=== PATIENT | female | born 1955 | race Caucasian/White ===

== ENCOUNTER 2023-12-24 08:54 | Outpatient (CLI) | payer MEDICARE, SELFPAY ==
--- NOTE | ~2023-12-24 | XR_ITS ---
Clinical Indication: Wheezing PA and lateral views of the chest: Comparison: None Findings: The lungs are clear, without evidence of focal consolidation or pleural effusion. Cardiome diastinal silhouette is within normal limits. Bones and soft tissues are unremarkable. Impression: Clear lungs. Possible COPD. Reviewed, dictated and finalized at [facility]. CTOR OF CARDIAC CATH LAB Impression: Clear lungs. Possible COPD.
--- NOTE | 2023-12-24 09:24 | ECHO_ITS ---
Patient Info Name: Meme Rowley Age: 68 years : 1955 Gender: Female Ht: 62 in Wt: 135 lbs BSA: 1.65 m2 HR: 78 bpm BP: 147 / 84 mmHg Technical Quality: Fair Exam Date: 12/24/2023 9:34 AM Exam Location: Echo Lab Patient Status: Outpatient Admit Date: 12/24/2023 Staff Ordering Physician: Criss Marrero PAC Pilot Fuel Engineer: Massiel Morales RDCS Attending Provider: Criss Marrero PAC Referring Physician: Janes CHANCE; Exam Type: CA echo doppler color flow Study Info Indications R01.1 - Cardiac murmur, unspecified Complete two-dimensional, color flow and Doppler transthoracic echocardiogram is performed. Summary 1. Complete two-dimensional, color flow and Doppler transthoracic echocardiogram is performed. 2. Left ventricular chamber dimension is normal. 3. Left ventricular systolic function is normal, estimated at 60-65%. 4. There is moderate concentric increased left ventricular wall thickness. 5. The left ventricular diastolic function is grade I diastolic dysfunction. 6. E/e' 11 is mildly elevated. 7. Global longitudinal strain is abnormal at -15.8%. 8. There is moderate aortic valve sclerosis. 9. The mitral valve has moderately calcified annulus. 10. There is trace mitral valve regurgitation. 11. No pulmonary hypertension, estimated pulmonary arterial systolic pressure is 37 mmHg. 12. There is trace pulmonic regurgitation. Left Ventricle E/e' 11 is mildly elevated. Global longitudinal strain is abnormal at -15.8%. Left ventricular chamber dimension is normal. Left ventricular systolic function is normal, estimated at 60-65%. There is moderate concentric increased left ventricular wall thickness. The left ventricular diastolic function is grade I diastolic dysfunction. Right Ventricle Right ventricular chamber dimension is normal. Right ventricular systolic function is normal. Left Atria Left atrial chamber dimension is normal. Right Atria Right atrial chamber dimension is normal. Aortic Valve The aortic valve is trileaflet. There is moderate aortic valve sclerosis. There is no aortic valve stenosis. There is no aortic valve regurgitation. Pulmonic Valve There is trace pulmonic regurgitation. Mitral Valve The mitral valve has moderately calcified annulus. There is no mitral valve stenosis. There is trace mitral valve regurgitation. Tricuspid Valve There is no tricuspid valve regurgitation. No pulmonary hypertension, estimated pulmonary arterial systolic pressure is 37 mmHg. Pericardium/Pleural There is no pericardial effusion. Inferior Vena Cava Normal inferior vena cava with >50% collapse upon inspiration consistent with normal right atrial pressure, 5 mmHg. Aorta The aortic root size at the sinus of Valsalva is normal. Left Ventricular Outflow Tract Name Value Normal LVOT 2D LVOT Diameter 2.0 cm LVOT Doppler LVOT Peak Gradient 6 mmHg LVOT Mean Gradient 4 mmHg LVOT VTI 23 cm LVOT VTI/AV VTI Ratio 0.9 LVOT Stroke Volume 71 ml LVOT CO 16.4 l/min LVOT CI
== END 2023-12-24 08:55 | disposition home or self-care (01) ==
PROVIDERS: PCP Family Medicine; Visit Provider Physician Assistant Medical
DX: R01.1 Cardiac murmur, unspecified (principal); R93.1 Abnormal findings on diagnostic imaging of heart and coronary circulation; I34.81 Nonrheumatic mitral (valve) annulus calcification; I34.0 Nonrheumatic mitral (valve) insufficiency; I37.1 Nonrheumatic pulmonary valve insufficiency; Z72.0 Tobacco use
CPT/HCPCS: 71046; 93306

== ENCOUNTER 2025-02-27 08:35 | Emergency (ER) | payer MEDICARE, SELFPAY ==
--- OUTSIDE RECORDS SUMMARY | 2025-02-27 08:40 | XMS_ITS | Referral Summary ---
Author Organization [facility] Address [address] [place] [id number] Care Team Providers Care Paste Plant Supervisor Name Role Phone Christiano Stahl MD Primary Care Provider [phone] Encounters Date Type Department Care Team Description 02/11/2025 10:00 AM CDT Office Visit [facility] Orthopedics and Sports Medicine [address] [place] [address] [address] [place] [address] Abdirahman Sevilla MD Primary osteoarthritis of knees, bilateral (Primary Dx) from Last 3 Months Allergies No known active allergies Medications metFORMIN (GLUCOPHAGE) 1,000 mg tablet 1 tablet (1,000 mg total) 2 (two) times a day Active lisinopril (PRINIVIL,ZESTRIL) 10 mg tablet 1 tablet (10 mg total) daily Active canagliflozin (INVOKANA) 100 mg tablet 1 tablet (100 mg total) daily Active Jardiance 10 mg tablet TK 1 T PO D 0 Active Synjardy XR 25-1,000 mg tablet, IR & ER, biphasic 24hr 1 Active HYDROcodone-acetami nophen (NORCO) 5-325 mg per tablet 02/20/20 2 1 Active simvastatin (ZOCOR) 20 mg tablet Take 1 tablet (20 mg total) by mouth daily [address] (VOLTAREN) 75 mg EC tabletIndications:P rimary osteoarthritis of knees, bilateral Take 1 tablet (75 mg total) by mouth 2 (two) times a day 60 tablet 2 3 Active Farxiga 10 mg tablet Take 1 tablet (10 mg total) by mouth daily 5 Active Hospital, Clinic, or Other Facility Administered Medication Ordered Dose Route Frequency Start Date End Date Status lidocaine (XYLOCAINE) 10 mg/mL (1 %) injection 1 mLIndications:Admini stration of Local Anesthesia 1 mL One-Time Injection 02/11/2025 5 Ended lidocaine (XYLOCAINE) 10 mg/mL (1 %) injection 1 mLIndications:Admini stration of Local Anesthesia 1 mL One-Time Injection 02/11/2025 5 Ended triamcinolone (KENALOG) 40 mg/mL injection 40 mgIndications:Primar y osteoarthritis of knees, bilateral 40 mg intra-artic One-Time Injection 02/11/2025 5 Ended triamcinolone (KENALOG) 40 mg/mL injection 40 mgIndications:Primar y osteoarthritis of knees, bilateral 40 mg intra-artic One-Time Injection 02/11/2025 5 Ended Active Problems Problem Noted Date Diagnosed Date Primary osteoarthritis of right shoulder 021 Closed fracture of right proximal humerus 2020 Primary osteoarthritis of knees, bilateral 11/23 Social History Tobacco Use Types Packs/Day Years Used Date Smoking Tobacco: Every Day Smokeless Tobacco: Current Alcohol Use Standard Drinks/Week Comments Not Currently 0 (1 standard drink = 0.6 oz pur e alcohol) Comments Unknown Sex and Gender Information Value Date Recorded Sex Assigned at Not on file 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 Gender Identity Not on file Sexual Orientation Not on file Occupation Industry Job Start Date Job End Date retired Not on file Not on file Not on file Last Filed Vital Signs Vital Sign Reading Time Taken Comments Blood Pressure - - Pulse - - Temperature - - Respiratory Rate - - Oxygen Saturation - - Inhaled Oxygen Concentration - - Weight 59 kg (130 lb) 02/11/2025 9:39 AM CDT Height 157.5 cm (5' 2 ) 02/11/2025 9:39 AM CDT Body Mass Index 23.78 02/11/2025 9:39 AM CDT Plan of Treatment Not on file Procedures Procedure Name Priority Date/Time Associated Diagnosis Comments CA ARTHROCENTESIS ASPIR&/INJ MAJOR JT/BURSA W/O US Routine 02/11/2025 10:00 AM CDT Primary osteoarthritis of knees, bilateral from Last 3 Months Results * CA ARTHROCENTESIS ASPIR&/INJ MAJOR JT/BURSA W/O US (02/11/2025 10:00 AM CDT) Abdirahman Mercer MD - 02/11/2025 10:00 AM CDT Abdirahman Sevilla MD 02/12/2025 8:49 AM Large Joint (Hip, Knee, Shoulder) Injection: bilateral knee Performed by: Abdirahman Sevilla MD Authorized by: Abdirahman Sevilla MD Large Joint Injection/Aspiration: Consent Given by: Patient Site marked: the procedure site was marked Timeout: prior to procedure the correct patient, procedure, and site was verified Verbal consent obtained: Yes Written consent obtained: No Supporting Documentation: Indications: Pain Procedure Details: Location: Knee Site: Bilateral knee Prep: patient was prepped using a clean technique Needle Size: 22 G Ultrasound guided: No Fluroscopic guidance: No Medications Right Large Joint Injection: 1 mL lidocaine 10 mg/mL (1 %); 40 mg triamcinolone 40 mg/mL Medications Left Large Joint Injection: 1 mL lidocaine 10 mg/mL (1 %); 40 mg triamcinolone 40 mg/mL Patient tolerance: Patient tolerated the procedure well with no immediate complications Result [facility] Abdirahman Sevilla MD IN CLINIC/BEDSIDE [facility] Final Result from Last 3 Months Insurance [facility] MEDICARE [employer]AGE [facility] MEDICARE Address: [address] [phone] [employer] MEDIC[employer] PPO Care Teams Paste Plant Supervisor Relationship Specialty Start Date End Date Christiano Stahl MD PCP - General Family Medicine 02/11/19
--- OUTSIDE RECORDS SUMMARY | 2025-02-27 08:40 | XMS_ITS | Clinical Summary ---
Author Organization [facility] Address [address] [place] [address] Care Team Providers Care Associate Drafter Name Role Phone Christiano Stahl MD Primary Care Provider Allergies No known active allergies Medications metFORMIN [...] 2020 Primary osteoarthritis of knees, bilateral 11/23 Encounters Date Type Department Care Team Description 02/11/2025 10:00 AM CDT Office Visit [facility] Orthopedics and Sports Medicine [address] [place] [phone] Abdirahman Sevilla MD Primary osteoarthritis of knees, bilateral (Primary Dx) from Last 3 Months Surgical History Surgery Date Site/Laterality Comments WRIST FRACTURE SURGERY Medical History Medical History Date Comments Diabetes mellitus (HCC) Primary osteoarthritis of both knees Family History Medical History Relation Name Comments Diabetes Other Relation Name Status Comments Other Social History Tobacco Use Types Packs/Day Years Used Date Smoking Tobacco: Every Day Smokeless Tobacco: Current Alcohol Use Standard Drinks/Week Comments Not Currently 0 (1 standard drink = 0.6 oz pur e alcohol) Comments Unknown Sex and Gender Information Value Date Recorded Sex Assigned at Not on file 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 Gender Identity Not on file Sexual Orientation Not on file Occupation Industry Job Start Date Job End Date retired Not on file Not on file Not on file Obstetrics History Last Filed Vital Signs Vital Sign Reading Time Taken Comments Blood Pressure - - Pulse - - Temperature - - Respiratory Rate - - Oxygen Saturation - - Inhaled Oxygen Concentration - - Weight 59 kg (130 lb) 02/11/2025 9:39 AM CDT Height 157.5 cm (5' 2 ) 02/11/2025 9:39 AM CDT Body Mass Index 23.78 02/11/2025 9:39 AM CDT Plan of Treatment Health Maintenance Due Date Last Done Comments Breast Cancer Screening-Mammogram 1955 Colon Cancer Screening-Colonoscopy 1955 Depression Screening 1955 Fall Risk Assessment 1955 Hepatitis C Screening 1955 Osteoporosis Screening-Bone Density Scan 1955 Hepatitis B Screening 1972 Zoster Vaccine (1 of 2) 2004 Well Visit 65+ 2019 Pneumococcal vaccine 65+ (2 of 2 - PPSV23) 09/30/2019 08/05/2019 Influenza Vaccine (#1) 2024 DTaP/Tdap/Td Vaccine (2 - Td or Tdap) 08/05/2029 Procedures Procedure Name Priority Date/Time Associated Diagnosis Comments MA ARTHROCENTESIS ASPIR&/INJ MAJOR JT/BURSA W/O US Routine 02/11/2025 10:00 AM CDT Primary osteoarthritis of knees, bilateral from Last 3 Months Results * MA ARTHROCENTESIS ASPIR&/INJ MAJOR JT/BURSA W/O US (02/11/2025 10:00 AM CDT) Narrative Abdirahman Sevilla MD - 02/11/2025 10:00 AM CDT Abdirahman [...] the procedure well with no immediate complications us Abdirahman Sevilla MD IN CLINIC/BEDSIDE ABDULLAHI BLAKE Final Result from Last 3 Months Insurance [facility] MEDICARE ADVANTAGE [employer] MEDIC[employer] PPO Care Teams Associate Drafter Relationship Specialty Start Date End Date Christiano Stahl MD PCP - General Family Medicine 02/11/19
[2025-02-27 08:48] VITALS: BP 146/62; PULSE 78; RESP 18; TEMP 36.8; O2SAT 99
[2025-02-27 08:59] LABS: EDUAAPPEAR Clear; EDUABILI Negative (Negative); EDUABLOOD Trace (Negative); EDUACOLOR1 Yellow; EDUAGLUCOSE 2+ (Negative); EDUAKETONE Negative (Negative); EDUALEUKO 1+ (Negative); EDUANITRATE Negative (Negative); EDUAPH 5.5; EDUAPROTEIN Negative (Negative); EDUASPGRAVITY 1.005; EDUAUROBILI 0.2
--- NOTE | 2025-02-27 09:04 | ED_ITS ---
HPI - Female Genitourinary General Chief complaint: Urogenital-Female Stated complaint: uti symptoms Time Seen by Provider: 02/27/25 08:58 Source: patient and RN notes reviewed Mode of arrival: ambulatory Limitations: no limitations History of Present Illness HPI Narrative: Patient presents today complaining of a 4 day history of urinary frequency and incomplete bladder emptying. Denies any additional symptoms to include dysuria, hematuria, abdominal or back pain, fever. She has taking azo with little relief. Related Data Home Medications ?Medication ?Instructions ?Recorded ?Confirmed ?Last Taken ?Type aspirin 81 mg tablet,delayed 81 mg PO DAILY 01/13/24 12/03/24 Unknown History release Allergies Allergy/AdvReac Type Severity Reaction Status Date / Time No Known Allergies Allergy Verified 02/27/25 08:52 Review of Systems Review of Systems: CONSTITUTIONAL: Denies body aches, fever, chills, or sweats. EYES: Denies visual changes, redness, or discharge. ENT: Denies rhinorrhea, congestion, sore throat, or otalgia. CARDIOVASCULAR: Denies chest pain, palpitations, or edema. RESPIRATORY: Denies cough or dyspnea. GASTROINTESTINAL: Denies abdominal pain, nausea, vomiting, or diarrhea. GENITOURINARY: Denies dysuria or hematuria.+ frequency, incomplete emptying SKIN: Denies rash, itching, or wounds. MUSCULOSKELETAL: Denies back pain, joint pain, or myalgia. NEUROLOGIC: Denies headache, numbness, tingling, or weakness. PSYCH: Denies depression or anxiety. [facility] Past Medical History Medical History Aortic valve sclerosis BMI 25.0-25.9,adult BMI 30.0-30.9,adult Tobacco abuse Family History Family History Father Family history of heart disease in male family member before age 55 Mother , MVC Sibling , cancer Diabetes mellitus Sibling Dementia Social History Social History Smoking packs per day: 0.50 Smoking cigarettes per day: 10.0 Years smoked: 20 Smoking pack-years: 10.00 Smoking status: Current some day smoker (1/2 ppd) Tobacco type: cigarettes Second hand tobacco smoke exposure: No Alcohol intake: former Substance use: current Substance use type: marijuana Do You Feel Safe in your Home?: Yes Lack of Transportation: No Lack of Food: Never True Current Housing: I Have Housing Concerned About Future Housing: No Difficulty Paying Gas/Electric Bills: No Difficulty Paying for Meds: No Currently Unemployed: No Education: High School Diploma/GED Difficulty w/ Childcare or Family Care: No Living arrangements: with family Occupation/Education: retired Additional occupation/education comments: [employer]/assisted living Gender identity (if verbalized by the patient): Female Comments At time of signature, I have reviewed and agree with nursing past medical, surgical, social and family history unless otherwise noted. Please see nursing chart for further information. There is no relevant family history pertinent to the presenting complaint Exam Narrative: GENERAL: Well-appearing, well-nourished, and in no acute distress. HEAD: Normocephalic, atraumatic. EYES: EOMI. No redness or drainage. Conjunctivae normal. ENT: Mucous membranes pink and moist. NECK: Normal AROM. CHEST: No respiratory distress. Clear to auscultation. HEART: Regular rate and rhythm. No murmur appreciated. Normal peripheral pulses. ABDOMEN: Soft, nontender, nondistended, normal active bowel sounds. EXTREMITIES: Normal range of motion. No edema. SKIN: Warm, dry, no rash. Capillary refill normal. Normal skin turgor. NEURO: No focal deficits. Alert and oriented x3. Gait steady. PSYCH: Normal affect. No signs of depression or anxiety. Course Course Level of Care: Express Care Visit Vital Signs Vital signs: Vital Signs Temperature 98.3 F 02/27/25 08:48 Pulse Rate 78 02/27/25 08:48 Respiratory Rate 18 02/27/25 08:48 Blood Pressure 146/62 H 02/27/25 08:48 Pulse Oximetry 99 02/27/25 08:48 Oxygen Delivery Room Air 02/27/25 08:48 Temperature 98.3 F 02/27/25 08:48 Pulse Rate 78 02/27/25 08:48 Respiratory Rate 18 02/27/25 08:48 Blood Pressure 146/62 H 02/27/25 08:48 Pulse Oximetry 99 02/27/25 08:48 Oxygen Delivery Room Air 02/27/25 08:48 Reviewed MDM - Female Genitourinary MDM Narrative Medical decision making narrative: Urinalysis is consistent with developing UTI. Will treat with Keflex. Anticipatory guidance given. Differential Diagnosis Differential diagnosis: Likely urinary tract infection, vaginitis and cystitis Lab Data Attestation: I reviewed the patient's lab results. Labs: Lab Results 02/27/25 Range/Units 08:57 POC Urine Color Yellow POC Urine Clarity Clear POC Urine pH 5.5 POC Ur Specif Hitch[place] 1.005 POC Urine Protein Negative (Negative) POC Ur Glucose (UA) 2+ (Negative) POC Urine Ketones Negative (Negative) POC Urine Blood Trace (Negative) POC Urine Nitrite Negative (Negative) POC Urine Bilirubin Negative (Negative) POC Urine Urobilinogen 0.2 POC U Leukocyte Esteras 1+ (Negative) Critical Care Time Critical Care Time Critical Care Time: No Discharge Plan Discharge Clinical Impression: Urinary tract infection Qualifiers: Urinary tract infection type: acute cystitis Hematuria presence: with hematuria Qualified Code(s): N30.01 - Acute cystitis with hematuria Patient Disposition: Home Condition: Stable Instructions: Antibiotic Form, Urinary Tract Infection in Older Adults (ED) Additional Instructions: Your urine shows infection today. Take Keflex as prescribed until gone. Your urine will be sent of for a culture to identify what type of bacteria is causing your infection. If the culture shows that your medication will not get rid of your infection, you will be notified and a new antibiotic will be called in for you. If your symptoms worsen to include fever, sweats, chills, nausea, vomiting, severe abdominal or back pain, please go to the ER for further evaluation. Your blood pressure was elevated above 120/80 today at Urgent Care. This puts you above the threshold for follow up. Please schedule a followup visit with your personal physician as soon as possible, for further evaluation and treatment. Even blood pressure exceeding 120/80 may indicate pre-hypertension. Patient Language: Citizen Of [place] Prescriptions: New cephalexin 500 mg capsule 500 mg PO Q6H 7 Days Qty: 28 0RF No Action (DME) Accu-Chek Izabella Plus test strp Strip See Rx Instructions .ROUTE .MEDSUPPLY Qty: 100 2RF Rx Instructions: Checking glucose bid for diabetes (DME) blood-glucose meter Misc See Rx Instructions .ROUTE .MEDSUPPLY Qty: 1 0RF Rx Instructions: Use as directed for diabetes (DME) lancets [Accu-Chek Softclix Lancets] Misc See Rx Instructions .ROUTE .MEDSUPPLY Qty: 100 0RF Rx Instructions: Check glucose bid for diabetes aspirin 81 mg tablet,delayed release (DR/EC) 81 mg PO DAILY lisinopril 10 mg tablet See Rx Instructions .ROUTE .COMPLEX Qty: 90 3RF Dose Instruction: TAKE 1 TABLET BY MOUTH DAILY Rx Instructions: TAKE 1 TABLET BY MOUTH DAILY simvastatin 20 mg tablet 20 mg PO DAILY Qty: 30 5RF glimepiride 2 mg tablet 2 mg PO QAM Qty: 90 1RF Rx Instructions: administer with breakfast Farxiga 10 mg tablet 10 mg PO DAILY Qty: 90 0RF Follow-up/Referrals: Christiano Sthal MD [Primary Care Provider] - Time of Disposition: 09:07
== END 2025-02-27 09:13 | disposition home or self-care (01) ==
PROVIDERS: Emergency Provider Nurse Practitioner; PCP Family Medicine
DX: N30.01 Acute cystitis with hematuria (principal); F17.210 Nicotine dependence, cigarettes, uncomplicated
CPT/HCPCS: 81003; 87086; 87186; 99213; G0463